=== PATIENT | female | born 2000 | race Caucasian/White ===

== ENCOUNTER 2022-09-19 22:02 | Emergency (ER) | payer BC ==
[~2022-09-19] VITALS: Ht 165.1 cm; Wt 81.8 kg
[2022-09-19 22:11] VITALS: BP 129/64; TEMP 98.7
[2022-09-19] MEDS ORDERED: ZYRTEC 10MG10 MG PO (22:14)
[2022-09-19 23:30] VITALS: PULSE 88
== END 2022-09-19 23:30 | disposition home or self-care (01) ==
LOC: COL.ER 22:02
DX: S93.401A Sprain of unspecified ligament of right ankle, initial encounter (principal); Z28.310 Unvaccinated for COVID-19; W18.39XA Other fall on same level, initial encounter; W50.0XXA Accidental hit or strike by another person, initial encounter; Y93.41 Activity, dancing
CPT/HCPCS: 31865; L4386